=== PATIENT | female | born 1940 | race Caucasian/White ===

== ENCOUNTER → 2017-04-28 | Outpatient (CLI) | payer MEDICARE ==
--- NOTE | 2017-04-28 15:17 | KCIC ---
INDICATION: Claudication. TECHNIQUE: Grayscale, color-flow, and spectral waveform analysis of both lower extremity arterial systems was performed. ABIs were calculated. FINDINGS: Waveforms are biphasic throughout. Minimal plaquing is noted in the runoff bilaterally. No turbulent flow or high-grade stenosis on grayscale or color imaging is identified. No elevated velocity is identified. Right common femoral artery peak systolic velocity is 168 cm/s and the left 154 cm/s. Right profundus peak systolic velocity is 87 cm/s and the left 70 cm/s. Right superficial femoral artery peak systolic velocities ranged from 103-113 cm/s and the left 105-128 cm/s. Right popliteal artery peak systolic velocity is 58 cm/s and the left 125 cm/s. Right CHAI is calculated at 1.0 and the left 0.9. IMPRESSION: 1. Minimal plaquing in the runoff. No evidence of a hemodynamically significant stenosis. 2. Normal ABIs bilaterally. Electronically signed by: Facundo Gama MD (04/28/2017 3:13 PM) [facility]
--- NOTE | 2017-04-28 15:19 | KCIC ---
INDICATION: Venous insufficiency with calf discoloration. TECHNIQUE: Grayscale, color-flow, and waveform analysis was performed. Exam was performed as a venous reflux study per Hospital protocol. FINDINGS: There is no evidence of deep vein thrombosis involving the common femoral veins and popliteal veins. The greater and lesser saphenous veins bilaterally are evaluated and no reflux greater than a second is identified. The lesser saphenous veins are diminutive. No varicosities or perforators are identified. IMPRESSION: 1. No evidence of reflux within either lower extremity. 2. No deep vein thrombosis in the common femoral veins or popliteal veins. Electronically signed by: Facundo Gama MD (04/28/2017 3:16 PM) [facility]
== END | disposition home or self-care (01) ==
LOC: KCIC US 12:08
PROVIDERS: ATTEND Podiatrist Foot & Ankle Surgery
DX: I73.9 Peripheral vascular disease, unspecified (principal); I87.2 Venous insufficiency (chronic) (peripheral)
CPT/HCPCS: 93922; 93925; 93970

== ENCOUNTER → 2018-09-08 | Outpatient (CLI) | payer MEDICARE ==
--- NOTE | 2018-09-08 13:43 | RAD ---
MR#: [id number] Date of Study: 09/08/2018 Ordering Physician: SHERLY PARKS, Referring Physician: SHERLY PARKS, Tech: Bernard Nuñez MBA, RDMS, RVT, RDCS, RTR APPROVED REPORT Patient Location : OUT-PATIENT Indications insufficiency Findings Limited images of the bilateral saphenofemoral junctions do not reveal any evidence of thrombus The right great saphenous vein measures 4.8 mm in the left great saphenous vein measures 5.7 mm. Both left and right saphenous veins do not show any evidence of reflux. The bilateral lesser saphenous ve ins do not show any evidence of reflux. Critical Notification Critical Value: No <Conclusion> Negative for reflux in the bilateral greater and lesser saphenous veins. Signed by : Naeem Narayanan, Electronically Approved : 09/08/2018 13:41:55
--- NOTE | 2018-09-08 15:29 | CARD ---
MR#: [id number] Date of Study: 09/08/2018 Ordering Physician: SHERLY PARKS, Referring Physician: SHERLY PARKS Tech: Domonique Kurtz JUANY APPROVED REPORT EXAM: Two-dimensional and M-mode echocardiogram with Doppler and color Doppler. Other Information Quality : AverageHR: 64bpm Rhythm : NSR INDICATION Hypertension/HCVD RISK FACTORS Hypertension 2D DIMENSIONS RVDd2.9 (2.9-3.5cm)Left Atrium(2D)4.2 (1.6-4.0cm) IVSd1.3 (0.7-1.1cm)Aortic Root(2D)2.6 (2.0-3.7cm) LVDd3.9 (3.9-5.9cm)LVOT Diameter1.9 (1.8-2.4cm) PWd1.4 (0.7-1.1cm)LVDs2.3 (2.5-4.0cm) FS (%) 42.0 %SV49.2 ml LVEF(%)73.7 (>50%) Aortic Valve AoV Peak Erik.130.3cm/Katiana Peak GR.6.8mmHg LVOT Peak Erik.89.2cm/sAVA (VMAX)1.98cm2 Mitral Valve MV E Ukpwjiqg49.0cm/sMV DECEL GUJD518jx MV A Ganvwdyb22.4cm/sE/A Ratio0.6 MV A Eqrcyztv406vn Pulmonary Valve PV Peak Xyztbaoe783.7cm/s Tricuspid Valve TR P. Ezchlmfy794oc/sTR Peak Gr.36mmHg Pulmonary Vein S1 Xwvhuvox10.6cm/sD2 Vbwbyezc02.0cm/s PVa ckeztcyl225slto LEFT VENTRICLE The left ventricle is normal size. There is moderate concentric left ventricular hypertrophy. The lef t ventricular systolic function is normal. The Ejection Fraction is 60-65%. There is normal LV segmen shanti wall motion. RIGHT VENTRICLE The right ventricle is normal size. There is normal right ventricular wall thickness. The right ventr icular systolic function is normal. ATRIA The left atrium is mildly dilated. The right atrium size is normal. The interatrial septum is intact with no evidence for an atrial septal defect or patent foramen ovale as noted on 2-D or Doppler imagi ng. AORTIC VALVE The aortic valve is normal in structure and function. The aortic valve is minimally calcified and ope ns well. Doppler and Color Flow revealed trace aortic regurgitation. There is no significant aortic v alvular stenosis. MITRAL VALVE The mitral valve is thickened but opens well. There is no evidence of mitral valve prolapse. Doppler and Color-flow revealed mild mitral regurgitation. TRICUSPID VALVE The tricuspid valve is normal in structure and function. Doppler and Color Flow revealed mild tricusp id regurgitation. There is no tricuspid valve stenosis. PULMONIC VALVE Doppler and Color Flow revealed mild to moderate pulmonic valvular regurgitation. GREAT VESSELS The aortic root is normal in size. The IVC is normal in size and collapses >50% with inspiration. PERICARDIAL EFFUSION There is no pleural effusion. There is no evidence of significant pericardial effusion. Critical Notification Critical Value: No <Conclusion> The left ventricular systolic function is normal. The Ejection Fraction is 60-65%. There is normal LV segmental wall motion. Mild mitral regurgitation. Mild tricuspid regurgitation. There is no evidence of significant pericardial effusion. Signed by : Sherly Parks, Electronically Approved : 09/08/2018 15:27:10
== END | disposition home or self-care (01) ==
LOC: ECHO 16:10
PROVIDERS: ATTEND Internal Medicine Cardiovascular Disease
DX: I87.2 Venous insufficiency (chronic) (peripheral) (principal); I08.1 Rheumatic disorders of both mitral and tricuspid valves; I10 Essential (primary) hypertension
CPT/HCPCS: 93306; 93970

== ENCOUNTER → 2018-10-12 | Outpatient (CLI) | payer MEDICARE ==
[~2018-10-12] MED LIST: REGADENOSON 0.4 MG/5 ML DISP.SYRIN. IV ONE
--- NOTE | 2018-10-12 13:51 | RAD ---
MR#: [id number] Date of Study: 10/12/2018 Ordering Physician: SHERLY PARKS Referring Physician: MIGUEL ANGEL GONZALEZ Tech: RT Frederic King) (N) APPROVED REPORT Test Type: Pharmacological Stress Nurse/Tech: Fatemeh Horton R.N. Test Indications: C/P Cardiac History: HTN,DM Medications: Zocor Medical History: See Electronic Medical Record Resting ECG: SR Resting Heart Rate: 54 bpm Resting Blood Pressure: 149/61mmHg Pretest Chest Pain: No chest pain Nurse/Tech Notes S1S2, lungs CTA Consent: The procedure was explained to the patient in lay terms. Informed consent was witnessed. Quinten eout was entered into [employer]. History and Stress Test performed by RT Frederic King) (N) Pharm. Details Pharmacologic stress testing was performed using 0.4mg per 5ml of regadenoson given intravenously ove r 7-10 seconds. Stress Symptoms slight SOB POST EXERCISE Reason for Termination: Infusion complete Max HR: 88 bpm Max Blood Pressure: 138/67mmHg Blood Pressure response to exercise: Normal blood pressure response during stress. Heart Rate response to exercise: wnl Chest Pain: No. Arrhythmia: No. ST Change: No. INTERPRETATION Stress EKG Conclusion: Baseline EKG showed sinus rhythm. No ischemic changes at peak stress. No arr hythmias. Imaging Protocol IMAGE PROTOCOL: Rest Tc-99m/stress Tc-99m 1 day Rest: Stress: Viability: Radiopharm.Tc99m LdlanuvmqHk38a Sestamibi Rpcf88cDo 32mCi Duration 13min. 13min. Img Date 10/12/2018 10/12/2018 Inj-Img Cwlq26fai. 60min. Rest Admin Site:IV - Right WristAdministrator:RT Frederic King)(N) Stress Admin Site: IV - Right WristAdministrator: RT Frederic Sandoval)(N) STRESS DATA End Diast. Vol.51.0mlLVEDV index BSA31.0ml End Syst. Vol.11.0mlLVESV index BSA6.0ml Myocardial Mass87.0gEject. Xykdvwno76.0% Stress Scores Regional WT0.00Summed WT4.00 Regional WM0.00Summed WM0.00 LV Perfusion Scintigraphic images technically difficult but there appears to be no significant fixed or reversible defects Wall Motion Normal left ventricular systolic function with ejection fraction calculated at 75%. LV Perf. Quant 17 Seg. SSS0.00 17 Seg. SRS25.00 17 Seg. SDS0.00 Stress Defect Extent (% LAD)0.00Rest Defect Extent (% LAD)65.00Rev. Defect Extent (% LAD)0.00 Stress Defect Extent (% LCX) 0.00Rest Defect Extent (% LCX)82.50Rev. Defect Extent (% LCX)0.00 Stress Defect Extent (% RCA)0.00Rest Defect Extent (% RCA)14.40Rev. Defect Extent (% RCA)0.00 Stress Defect Extent (% MYNOR)0.00Rest Defect Extent (% MYNOR)55.90Rev. Defect Extent (% MYNOR)0.00 Conclusion 1. Regadenoson cardioisotope stress test was technically difficult but did not show any obvious evide nce of ischemia or infarct. 2. Normal left ventricular systolic function with ejection fraction calculated at 75%. 3. Low risk for cardiac events. Signed by : Sherly Parks, Electronically Approved : 10/12/2018 13:49:34
== END | disposition home or self-care (01) ==
LOC: NM 10:00
PROVIDERS: ATTEND Internal Medicine Cardiovascular Disease
DX: R07.9 Chest pain, unspecified (principal)
CPT/HCPCS: 78452; 93017; 96374; A9500; J2785

== ENCOUNTER → 2019-09-21 | Outpatient (CLI) | payer MEDICARE ==
--- NOTE | 2019-09-21 14:55 | CARD ---
MR#: [id number] Date of Study: 09/21/2019 Ordering Physician: SHERLY PARKS, Referring Physician: SHERLY PARKS Tech: Elisa Mock RDCS APPROVED REPORT EXAM: Two-dimensional and M-mode echocardiogram with Doppler and color Doppler. Other Information Quality : Good INDICATION Hypertension/HCVD 2D DIMENSIONS RVDd2.5 (2.9-3.5cm)Left Atrium(2D)3.5 (1.6-4.0cm) IVSd1.2 (0.7-1.1cm)Aortic Root(2D)2.6 (2.0-3.7cm) LVDd4.4 (3.9-5.9cm)LVOT Diameter1.9 (1.8-2.4cm) PWd1.1 (0.7-1.1cm)LVDs2.5 (2.5-4.0cm) FS (%) 30.0 %SV65.1 ml LVEF(%)60.0 (>50%) Aortic Valve AoV Peak Erik.80.7cm/sAoV VTI15.4cm AO Peak GR.2.6mmHgLVOT Peak Erik.83.3cm/s AO Mean GR.1mmHgAVA (VMAX)2.99cm2 ZAYDA (VTI)3.30cm2 Mitral Valve MV E Shhgwjtt54.4cm/sMV DECEL ILOE038lz MV A Rdpcbczj28.0cm/sE/A Ratio0.7 Tricuspid Valve TR P. Oztzixfz055lh/sRAP FTDAMJJN2fvLr TR Peak Gr.58bqAgCDWB16ebHh Pulmonary Vein S1 Ywnbdkiv22.9cm/sD2 Rtemyicd14.2cm/s LEFT VENTRICLE The left ventricle is normal size. There is mild concentric left ventricular hypertrophy. The left ve ntricular systolic function is normal. The Ejection Fraction is 55-60%. There is normal LV segmental wall motion. Transmitral Doppler flow pattern is Grade I-abnormal relaxation pattern. RIGHT VENTRICLE The right ventricle is normal size. The right ventricular systolic function is normal. ATRIA The left atrium size is normal. The right atrium size is normal. The interatrial septum is intact wit h no evidence for an atrial septal defect or patent foramen ovale as noted on 2-D or Doppler imaging. AORTIC VALVE The aortic valve is mildly thickened but opens well. Doppler and Color Flow revealed trace eccentric aortic regurgitation. There is no significant aortic valvular stenosis. MITRAL VALVE The mitral valve is thickened but opens well. There is no evidence of mitral valve prolapse. There is no mitral valve stenosis. Doppler and Color-flow revealed trace to mild mitral regurgitation. TRICUSPID VALVE The tricuspid valve is normal in structure and function. Doppler and Color Flow revealed trace tricus pid regurgitation. There is moderate pulmonary hypertension. The PA pressure was estimated at 41 mmHg . There is no tricuspid valve stenosis. PULMONIC VALVE The pulmonary valve is normal in structure and function. Doppler and Color Flow revealed mild pulmoni c valvular regurgitation. There is no pulmonic valvular stenosis. GREAT VESSELS The aortic root is normal in size. The ascending aorta is normal in size. The IVC is normal in size a nd collapses >50% with inspiration. PERICARDIAL EFFUSION There is no evidence of significant pericardial effusion. Critical Notification Critical Value: No <Conclusion> The left ventricular systolic function is normal. The Ejection Fraction is 55-60%. There is normal LV segmental wall motion. Transmitral Doppler flow pattern is Grade I-abnormal relaxation pattern. Trace to mild mitral regurgitation. Trace tricuspid regurgitation. The PA pressure was estimated at 41 mmHg. There is no evidence of significant pericardial effusion. Signed by : Sherly Parks, Electronically Approved : 09/21/2019 14:55:05
== END | disposition home or self-care (01) ==
LOC: ECHO 14:05
PROVIDERS: ATTEND Internal Medicine Cardiovascular Disease
DX: I08.8 Other rheumatic multiple valve diseases (principal); I11.9 Hypertensive heart disease without heart failure; I27.20 Pulmonary hypertension, unspecified
CPT/HCPCS: 93306